=== PATIENT | male | born 1970 | race American Indian/Alaskan Native ===

== ENCOUNTER 2018-05-20 08:17 | Emergency (ER) | payer OTHER ==
--- NOTE | 2018-05-20 11:21 | Emergency Department Report ---
- General Chief Complaint: Upper Respiratory Infection Stated Complaint: FLU SYMPTONS Time Seen by Provider: 05/20/18 11:14 Source: patient Mode of arrival: Ambulatory Limitations: No Limitations - History of Present Illness Initial Comments: Patient reports flu-like symptoms, difficulty breathing, cough, headache and congestion that started six days ago. He also reports a fainting episode while at work today MD Complaint: cough, nasal congestion, other (headache and difficulty breathing) Onset/Timin -: days(s) Severity: moderate Severity scale (0 -10): 6 Quality: dull Consistency: constant Improves With: nothing Worsens With: changing head position Context: sick contacts Associated Symptoms: chills, myalgias, headache, nasal congestion, cough, shortness of breath. denies: fever, diaphoresis, rhinorrhea, abdominal pain, nausea, vomiting, diarrhea, dysuria, rash, confusion, right sweats, weight loss , epistaxis, hoarseness, ear pain Treatments Prior to Arrival: none - Related Data Previous Rx's Medication Instructions Recorded Last Taken Type Fexofenadine HCl [Tata Allergy] 180 mg PO DAILY #15 tablet 05/20/18 Unknown Rx Ibuprofen 800 mg PO TID PRN #30 tablet 05/20/18 Unknown Rx guaiFENesin/DEXTROMETHORPHAN 1 each PO BID #20 tab.er.12h 05/20/18 Unknown Rx [Mucinex DM ER 600-30 mg TAB] Allergies Allergy/AdvReac Type Severity Reaction Status Date / Time No Known Allergies Allergy Unverified 05/20/18 10:00 ED Review of Systems ROS: Stated complaint: FLU SYMPTONS Other details as noted in HPI Constitutional: denies: chills, fever Eyes: denies: eye pain, eye discharge, vision change ENT: congestion. denies: ear pain, throat pain Respiratory: cough, shortness of breath. denies: orthopnea, SOB with exertion, SOB at rest, stridor, wheezing Cardiovascular: syncope. denies: chest pain, palpitations Endocrine: no symptoms reported Gastrointestinal: denies: abdominal pain, nausea, vomiting, diarrhea Genitourinary: denies: urgency, dysuria Musculoskeletal: denies: back pain, joint swelling, arthralgia Skin: denies: rash, lesions Neurological: headache. denies: weakness, paresthesias Psychiatric: denies: anxiety, depression Hematological/Lymphatic: denies: easy bleeding, easy bruising ED Past Medical Hx - Past Medical History Previous Medical History?: No - Surgical History Additional Surgical History: carpal tunnel - Medications Home Medications: Home Medications Medication Instructions Recorded Confirmed Last Taken Type Fexofenadine HCl [Tata Allergy] 180 mg PO DAILY #15 tablet 05/20/18 Unknown Rx Ibuprofen 800 mg PO TID PRN #30 tablet 05/20/18 Unknown Rx guaiFENesin/DEXTROMETHORPHAN 1 each PO BID #20 tab.er.12h 05/20/18 Unknown Rx [Mucinex DM ER 600-30 mg TAB] ED Physical Exam - General Limitations: No Limitations General appearance: alert, in no apparent distress - Head Head exam: Present: atraumatic, normocephalic - Eye Eye exam: Present: normal appearance Pupils: Present: normal accommodation - ENT ENT exam: Present: normal orophraynx, mucous membranes moist, other (nasal turbinates pale and boggy) - Expanded ENT Exam Expanded Ear exam: Present: normal external inspection. Absent: auricular hematoma, auricular trauma TM/Canal exam: Perforation: Right TM (chronic) Mouth exam: Present: normal external inspection, tongue normal. Absent: drooling, trismus, muffled voice, tongue elevation, laceration Teeth exam: Present: normal inspection. Absent: dental caries, fractured tooth #, dental tenderness #, gingival enlargement Throat exam: Positive: normal inspection. Negative: tonsillar erythema, tonsillomegaly, tonsillar exudate, R peritonsillar mass, L peritonsillar mass - Neck Neck exam: Present: normal inspection, full ROM. Absent: tenderness, meningismus, lymphadenopathy, thyromegaly - Respiratory Respiratory exam: Present: decreased breath sounds (left lower lobe). Absent: respiratory distress, wheezes, rales, rhonchi, stridor - Cardiovascular Cardiovascular Exam: Present: regular rate, normal rhythm, normal heart sounds. Absent: bradycardia, tachycardia, irregular rhythm, systolic murmur, diastolic murmur, rubs, gallop - GI/Abdominal GI/Abdominal exam: Present: soft, normal bowel sounds - Rectal Rectal exam: Present: deferred - Extremities Exam Extremities exam: Present: normal inspection, full ROM, normal capillary refill. Absent: tenderness, pedal edema, joint swelling - Back Exam Back exam: Present: normal inspection, full ROM. Absent: tenderness, CVA tenderness (R), CVA tenderness (L), muscle spasm, paraspinal tenderness, vertebral tenderness, rash noted - Neurological Exam Neurological exam: Present: alert, oriented X3, CN II-XII intact, normal gait, reflexes normal. Absent: motor sensory deficit - Psychiatric Psychiatric exam: Present: normal affect, normal mood - Skin Skin exam: Present: warm, dry, intact, normal color. Absent: rash ED Course Vital Signs 05/20/18 05/20/18 08:58 13:19 Temperature 97.4 F L Pulse Rate 69 65 Respiratory 16 Rate Blood Pressure 129/92 Blood Pressure 125/93 [Right] O2 Sat by Pulse 97 99 Oximetry - Reevaluation(s) Reevaluation #1: 05/20/18 11:25 EKG and CXR ordered ED Medical Decision Making - Lab Data Vital Signs 05/20/18 08:58 Temperature 97.4 F L Pulse Rate 69 Blood Pressure 129/92 O2 Sat by Pulse 97 Oximetry - EKG Data EKG shows normal: sinus rhythm Rate: bradycardia - EKG Data When compared to previous EKG there are: previous EKG unavailable Interpretation: no acute changes, normal EKG - Radiology Data Radiology results: image reviewed ROUTINE CHEST, TWO VIEWS: HISTORY: Cough, shortness of breath. The trachea, heart, mediastinal contour, lung engle and bony thorax are unremarkable. IMPRESSION: Unremarkable chest x-ray. - Medical Decision Making During the course of ED, imaging studies were ordered. The EKG was NSR, no STEMI or depression noted. Chest xray was unremarkable. Patient was sent home with prescriptions for Tata, Ibuprofen and Mucinex DM, instructed to follow up with his PCP, he verbalized understanding - Differential Diagnosis Upper Resp Infection, Pneumonia Critical care attestation.: If time is entered above; I have spent that time in minutes in the direct care of this critically ill patient, excluding procedure time. ED Disposition Clinical Impression: Upper respiratory infection Qualifiers: URI type: unspecified URI Qualified Code(s): J06.9 - Acute upper respiratory infection, unspecified Disposition: DC-01 TO HOME OR SELFCARE Is pt being admited?: No Does the pt Need Aspirin: No Condition: Stable Instructions: Upper Respiratory Infection (ED) Additional Instructions: Take medication as directed. Follow up with your PCP this week. Return back to the ED for worsening symptoms Prescriptions: Fexofenadine HCl [Tata Allergy] 180 mg PO DAILY #15 tablet guaiFENesin/DEXTROMETHORPHAN [Mucinex DM ER 600-30 mg TAB] 1 each PO BID #20 tab.er.12h Ibuprofen 800 mg PO TID PRN #30 tablet PRN Reason: Pain, Moderate (4-6) Referrals: PRIMARY CARE,MD [Primary Care Provider] - 3-5 Days Forms: Work/School Release Form(ED) Time of Disposition: 12:47
--- NOTE | 2018-05-20 12:43 | XRay Report ---
ROUTINE CHEST, TWO VIEWS: HISTORY: Cough, shortness of breath. The trachea, heart, mediastinal contour, lung engle and bony thorax are unremarkable. IMPRESSION: Unremarkable chest x-ray.
[2018-05-20 13:20] VITALS: BP 125/93
== END 2018-05-20 13:21 | disposition home or self-care (01) ==
LOC: ED 08:17
DX: J06.9 Acute upper respiratory infection, unspecified (principal)
CPT/HCPCS: 71046; 93005; 93010; 99283